=== PATIENT | male | born 1990 | race Caucasian/White ===

== ENCOUNTER 2024-07-06 17:07 | Emergency (ER) | payer SELFPAY ==
[~2024-07-06] VITALS: Ht 175.3 cm; Wt 98.0 kg
[2024-07-06 17:18] VITALS: BP 136/92; PULSE 79; RESP 16; TEMP 98.3; O2SAT 98
== END 2024-07-06 17:35 | disposition left against medical advice (07) ==
LOC: EMS 17:07
DX: I63.9 Cerebral infarction, unspecified (principal); Z53.21 Procedure and treatment not carried out due to patient leaving prior to being seen by health care provider
CPT/HCPCS: 93005